=== PATIENT | male | born 1985 | race Caucasian/White ===

== ENCOUNTER 2018-10-14 10:50 | Inpatient (IN) | payer BC ==
[2018-10-14] MEDS ORDERED: NORMAL SALINE 1000 ML 1,000 ML IV ONE (11:23)
[2018-10-14] MEDS ORDERED: ONDANSETRON HCL INJ/PF 4 MG/2 ML SDV IV ONE (11:23)
[2018-10-14] MEDS ORDERED: FENTANYL CITRATE INJ/PF 100 MCG/2 ML AMPUL IV ONE (11:23)
--- NOTE | 2018-10-14 11:28 | ER Document Report ---
ED Medical Screen (RME) - General Chief Complaint: Abdominal Pain Stated Complaint: ABDOMINAL PAIN Time Seen by Provider: 10/14/18 11:23 Primary Care Provider: AJITH CAMPOS MD [Primary Care Provider] - Follow up as needed Mode of Arrival: Ambulatory Information source: Patient Notes: 33-year-old male presents emergency department with complaints of periumbilical abdominal pain, nausea, vomiting, diarrhea since 1 AM. Patient reports having 4-5 episodes of emesis and 2 episodes of loose stool today. Pain is a sharp throbbing sensation located in the periumbilical area. No radiation. No alleviating or exacerbating factors. Patient has taken Tylenol for his pain. Last dose was an hour ago. He denies any fever, chills, testicular pain, penile discharge, dysuria, hematuria, increased urgency, increased frequency. I have greeted and performed a rapid initial assessment of this patient. A comprehensive ED assessment and evaluation of the patient, analysis of test results and completion of the medical decision making process will be conducted by additional ED providers. PHYSICAL EXAMINATION: GENERAL: Well appearing. HEAD: Atraumatic, normocephalic. EYES: Pupils equal round extraocular movements intact, conjunctiva are normal. ENT: Nares patent NECK: Normal range of motion LUNGS: No respiratory distress Musculoskeletal: Normal range of motion NEUROLOGICAL: Normal speech, normal gait. PSYCH: Normal mood, normal affect. SKIN: Warm, Dry, normal turgor, no rashes or lesions noted. TRAVEL OUTSIDE OF THE [place] IN LAST 30 DAYS: No - Related Data Allergies/Adverse Reactions: No Known Allergies Allergy (Verified 10/14/18 10:53) Past Medical History - Social History Frequency of alcohol use: Occasional Drug Abuse: None Renal/ Medical History: Denies: Hx Peritoneal Dialysis Past Surgical History: Reports: Hx Abdominal Surgery - colostomy at , no longer there - Immunizations Hx Diphtheria, Pertussis, Tetanus Vaccination: Yes Physical Exam - Vital signs Vitals: Temp Pulse Resp BP Pulse Ox 97.4 F 60 20 140/81 H 99 10/14/18 10:55 10/14/18 10:55 10/14/18 10:55 10/14/18 10:55 10/14/18 10:55 Course - Vital Signs Vital signs: Temp Pulse Resp BP Pulse Ox 97.4 F 60 20 140/81 H 99 10/14/18 10:55 10/14/18 10:55 10/14/18 10:55 10/14/18 10:55 10/14/18 10:55 Doctor's Discharge - Discharge Referrals: AJITH CAMPOS MD [Primary Care Provider] - Follow up as needed
--- NOTE | 2018-10-14 11:40 | ER Document Report ---
ED General - General Chief Complaint: Abdominal Pain Stated Complaint: ABDOMINAL PAIN Time Seen by Provider: 10/14/18 11:23 Mode of Arrival: Ambulatory Notes: Patient is a 33-year-old male that presents to the emergency department for chief complaint of lower abdominal pain. Patient reports his pain started around 1 AM this morning, described as severe in a 10 out of 10 when it started, across the lower abdomen, not one side or the other. He had associated nausea, and vomited after trying to take some MiraLAX with Gatorade. At this time he denies having any nausea has since resolved. He rates his pain now as a 5 out of 10 after receiving fentanyl in triage. He states his been having normal bowel movements, has had pain like this in the past yet it was not as severe, when he was constipated. He denies noting any fevers, chills, night sweats, dysuria, hematuria, flank pain, chest pain or shortness of breath. No sick contacts that he is aware of. 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 Family History: Reviewed and noncontributory for presenting illness Allergies: Reviewed, see documented allergy list. REVIEW OF SYSTEMS: Other than noted above, the 12 point review of systems was reviewed with the patient and were negative, all pertinent findings are included in the HPI. PHYSICAL EXAMINATION: Vital signs reviewed, nursing noted reviewed. GENERAL: Well-appearing, well-nourished and in no acute distress. HEAD: Atraumatic, normocephalic. EYES: Eyes appear normal, extraocular movements intact, sclera anicteric, conjunctiva are normal. ENT: nares patent, oropharynx clear without exudates. Moist mucous membranes. NECK: Normal range of motion, supple without lymphadenopathy LUNGS: Breath sounds clear to auscultation bilaterally and equal. No wheezes rales or rhonchi. HEART: Regular rate and rhythm without murmurs ABDOMEN: Soft, mild bilateral lower abdominal tenderness to palpation, incidentally there is noted to be a surgical incisional scars well-healed horizontally across the patient's abdomen, normoactive bowel sounds. No rebound, guarding, or rigidity. No masses appreciated. EXTREMITIES: Nontender, good range of motion, no pitting or edema. NEUROLOGICAL: No focal neurological deficits. Moves all extremities spontaneously Motor and sensory grossly intact on exam. PSYCH: Normal mood, normal affect. SKIN: Warm, Dry, normal turgor, no rashes or lesions noted on exposed skin TRAVEL OUTSIDE OF THE [place] IN LAST 30 DAYS: No - Related Data Allergies/Adverse Reactions: No Known Allergies Allergy (Verified 10/14/18 10:53) Past Medical History - General Information source: Patient - Social History Smoking Status: Never Smoker Frequency of alcohol use: Occasional Drug Abuse: None Family History: Reviewed & Not Pertinent Patient has suicidal ideation: No Patient has homicidal ideation: No Renal/ Medical History: Denies: Hx Peritoneal Dialysis Past Surgical History: Reports: Hx Abdominal Surgery - colostomy at , no longer there - Immunizations Hx Diphtheria, Pertussis, Tetanus Vaccination: Yes Physical Exam - Vital signs Vitals: Temp Pulse Resp BP Pulse Ox 97.4 F 60 20 140/81 H 99 10/14/18 10:55 10/14/18 10:55 10/14/18 10:55 10/14/18 10:55 10/14/18 10:55 Course - Re-evaluation Re-evalutation: Patient seen and examined vital signs reviewed. Laboratory data and imaging were ordered as appropriate for the patient's presenting symptoms and complaint, with consideration of any critical or life threatening conditions that may be associated with their obtained history and exam as noted above. Patient was treated with IV Fluids, Zofran and pain medication Results were reviewed when available and demonstrated CT imaging demonstrated mi ld fat stranding at the appendix, concerning for acute appendicitis, this did correlate with elevated white blood cell count of almost 18,000, and consistent with the patient's clinical exam The patient was re-evaluated and was still having some pain, he was given IV Dilaudid in addition to the final he was given earlier, to help control his pain. He was then started on IV Zosyn, and maintain n.p.o. Evaluation was most consistent with acute appendicitis Results were discussed with the patient at this point after careful consideration I feel that that patient should be admitted to the hospital. This was discussed with the patient that it is in the best interest for their care to be admitted for further evaluation and management. Patient agreed with this plan of care. A call was placed to the admitted physician, Dr. English who graciously accepted the patient onto their service, to take the patient to the OR. *Note is created using voice recognition software and may contain spelling, syntax or grammatical errors. Laboratory 10/14/18 10/14/18 10/14/18 11:34 11:34 11:34 WBC 17.6 H RBC 5.83 H Hgb 18.5 H Hct 52.7 H MCV 90 MCH 31.8 MCHC 35.2 RDW 13.3 Plt Count 248 Seg Neutrophils % 89.1 H Lymphocytes % 5.3 L Monocytes % 5.0 Eosinophils % 0.3 Basophils % 0.3 Absolute Neutrophils 15.7 H Absolute Lymphocytes 0.9 Absolute Monocytes 0.9 Absolute Eosinophils 0.1 Absolute Basophils 0.1 Sodium 140.8 Potassium 4.0 Chloride 103 Carbon Dioxide 27 Anion Gap 11 BUN 10 Creatinine 0.92 Est GFR ( Amer) > 60 Est GFR (Non-Af Amer) > 60 Glucose 119 H Calcium 9.6 Total Bilirubin 1.3 Direct Bilirubin 0.3 Neonat Total Bilirubin Not Reportable Neonat Direct Bilirubin Not Reportable Neonat Indirect Bili Not Reportable AST 65 H ALT 69 Alkaline Phosphatase 115 Total Protein 7.8 Albumin 5.0 Lipase 37.0 Urine Color YELLOW Urine Appearance CLEAR Urine pH 7.0 Ur Specific [place] 1.026 Urine Protein 30 H Urine Glucose (UA) NEGATIVE Urine Ketones TRACE H Urine Blood NEGATIVE Urine Nitrite NEGATIVE Urine Bilirubin NEGATIVE Urine Urobilinogen 2.0 H Ur Leukocyte Esterase NEGATIVE Urine WBC (Auto) 1 Urine RBC (Auto) 0 Squamous Epi Cells Auto <1 Urine Mucus (Auto) OCC Urine Ascorbic Acid NEGATIVE Acute Abdomen Series 10/14/18 11:24 IMPRESSION: NO RADIOGRAPHIC EVIDENCE FOR ACUTE ABDOMINAL DISEASE. Abdomen/Pelvis CT 10/14/18 12:11 IMPRESSION: Mild fat stranding in the region of the appendix, consider further evaluation with enteric contrast to assess for appendiceal filling and/or surgical consultation if there is high clinical suspicion for appendicitis. 12 mm lateral segment right lower lobe pleural-based nodularity -scarring with calcifications, chronic appearing and likely related to remote infection. - Vital Signs Vital signs: Temp Pulse Resp BP Pulse Ox 97.4 F 65 14 147/93 H 95 10/14/18 10:55 10/14/18 14:14 10/14/18 14:14 10/14/18 14:14 10/14/18 14:14 - Laboratory Result Diagrams: 10/14/18 11:34 10/14/18 11:34 Laboratory results interpreted by me: 10/14/18 10/14/18 10/14/18 11:34 11:34 11:34 WBC 17.6 H RBC 5.83 H Hgb 18.5 H Hct 52.7 H Seg Neutrophils % 89.1 H Lymphocytes % 5.3 L Absolute Neutrophils 15.7 H Glucose 119 H AST 65 H Urine Protein 30 H Urine Ketones TRACE H Urine Urobilinogen 2.0 H Discharge - Discharge Clinical Impression: Acute appendicitis Qualifiers: Acute appendicitis type: unspecified acute appendicitis type Qualified Code(s): K35.80 - Unspecified acute appendicitis Leukocytosis Qualifiers: Leukocytosis type: unspecified Qualified Code(s): D72.829 - Elevated white blood cell count, unspecified Condition: Stable Disposition: ADMITTED INPATIENT Admitting Provider: Surgicalist - Dr. English Unit Admitted: OR
[2018-10-14 11:49] LABS: APPEARANCE,URINE CLEAR; BILIRUBIN,URINE NEGATIVE (NEGATIVE); COLOR,URINE YELLOW; GLUCOSE, URINE NEGATIVE (NEGATIVE); KETONES,URINE TRACE mg/dL (NEGATIVE); LEUKOCYTE ESTERASE,URINE NEGATIVE (NEGATIVE); NITRITE,URINE NEGATIVE (NEGATIVE); PROTEIN,URINE 30 mg/dL (NEGATIVE); URINE SPECIFIC GRAVITY 1.026
[2018-10-14 11:55] LABS: ABSOLUTE BASOPHILS # (AUTO) 0.1 10^3/uL (0.0-0.2); ABSOLUTE EOSINOPHILS # (AUTO) 0.1 10^3/uL (0.0-0.6); ABSOLUTE LYMPHOCYTES (AUTO) 0.9 10^3/uL (0.5-4.7); ABSOLUTE MONOCYTES (AUTO) 0.9 10^3/uL (0.1-1.4); ABSOLUTE NEUT (AUTO) 15.7 10^3/uL (1.7-8.2); BASOPHILS % (AUTO) 0.3 % (0-2); EOSINOPHILS % (AUTO) 0.3 % (0-6); HEMATOCRIT 52.7 % (37.9-51.0); HEMOGLOBIN 18.5 g/dL (13.5-17.0); LYMPHOCYTES % (AUTO) 5.3 % (13-45); MEAN CORPUSCULAR HEMOGLOBIN 31.8 pg (27.0-33.4); MEAN CORPUSCULAR HGB CONC 35.2 g/dL (32.0-36.0); MEAN CORPUSCULAR VOLUME 90 fl (80-97); PLATELET COUNT 248 10^3/uL (150-450); RED BLOOD COUNT 5.83 10^6/uL (4.35-5.55); RED CELL DISTRIBUTION WIDTH 13.3 % (11.5-14.0); SEGMENTED NEUTROPHILS % (AUTO) 89.1 % (42-78); TOTAL CELLS COUNTED % (AUTO) 100 %; WHITE BLOOD COUNT 17.6 10^3/uL (4.0-10.5)
[2018-10-14] MEDS ORDERED: RINGERS SOLUTION,LACTATED 1,000 ML IV ONE (12:12)
[2018-10-14 12:13] LABS: ALANINE AMINOTRANSFERASE 69 U/L (21-72); ALKALINE PHOSPHATASE 115 U/L (38-126); ANION GAP 11 (5-19); ASPARTATE AMINO TRANSFERASE 65 U/L (17-59); BILIRUBIN,DIRECT 0.3 mg/dL (0.0-0.4); BILIRUBIN,TOTAL 1.3 mg/dL (0.2-1.3); BLOOD UREA NITROGEN 10 mg/dL (7-20); CALCIUM 9.6 mg/dL (8.4-10.2); CARBON DIOXIDE 27 mmol/L (22-30); CHLORIDE 103 mmol/L (98-107); GLUCOSE 119 mg/dL (75-110); SODIUM 140.8 mmol/L (137-145); TOTAL PROTEIN 7.8 g/dL (6.3-8.2)
--- NOTE | 2018-10-14 12:20 | RADIOLOGY REPORT (SQ) ---
EXAM DESCRIPTION: ACUTE ABDOMEN SERIES COMPLETED DATE/TIME: 10/14/2018 12:05 pm REASON FOR STUDY: abdominal pain COMPARISON: None. NUMBER OF VIEWS: Three views. TECHNIQUE: Frontal chest, supine abdomen and upright/decubitus abdomen radiographic images acquired. LIMITATIONS: None. FINDINGS: CHEST: There is a density right cardiophrenic angle consistent with pericardial fat pad. No acute infiltrates or effusions. The heart is normal in size. Pulmonary vasculature is normal. FREE AIR: None. No abnormal gas collections. BOWEL GAS PATTERN: Nonspecific bowel-gas pattern. Scattered gas in large and small bowel. CALCIFICATIONS: No suspicious calcifications. HARDWARE: None in the abdomen. SOFT TISSUES: No gross mass or suggestion of organomegaly. BONES: No acute fracture. No worrisome bone lesions. OTHER: No other significant finding. IMPRESSION: NO RADIOGRAPHIC EVIDENCE FOR ACUTE ABDOMINAL DISEASE. TECHNICAL DOCUMENTATION: JOB ID: [id number] SC-[id number] 2010 [employer]- All Rights Reserved Reading location - IP/workstation name: [email or web address]
[2018-10-14] MEDS ORDERED: HYDROMORPHONE HCL INJ/PF 2 MG/ML AMPULE IV ONE ×2 (12:30→14:01)
--- NOTE | 2018-10-14 13:21 | RADIOLOGY REPORT (SQ) ---
EXAM DESCRIPTION: CT ABD/PELVIS WITH IV ONLY COMPLETED DATE/TIME: 10/14/2018 12:59 pm REASON FOR STUDY: lower abdominal pain, L>R COMPARISON: None. TECHNIQUE: CT scan of the abdomen and pelvis performed using helical scanning technique with dynamic intravenous contrast injection. No oral contrast. Images reviewed with lung, soft tissue, and bone w indows. Reconstructed coronal and sagittal MPR images reviewed. Delayed images for evaluation of the urinary system also acquired. All images stored on PACS. All CT scanners at this facility use dose modulation, iterative reconstruction, and/or weight based d osing when appropriate to reduce radiation dose to as low as reasonably achievable (ALARA). [facility]: Dose Right [facility]: CareDose [facility]: Dose Right [facility]: Teradose 4D [facility]: Shoppilot CONTRAST TYPE AND DOSE: contrast/concentration: Isovue 350.00 mg/ml; Total Contrast Delivered: 100.0 ml; Total Saline Delivered: 72.0 ml RENAL FUNCTION: GFR > 60. RADIATION DOSE: CT Rad equipment meets quality standard of care and radiation dose reduction techniq ues were employed. CTDIvol: 10.9 - 15.3 mGy. DLP: 1570 mGy-cm.. LIMITATIONS: None. FINDINGS: LOWER CHEST: 12 mm lateral segment right lower lobe pleural-based nodularity -scarring wit h calcifications. No pleural effusion. LIVER: Normal size. No enhancing masses. No dilated ducts. SPLEEN: Normal size. No focal lesions. PANCREAS: No masses identified. No significant calcifications. No adjacent inflammation or peripancre atic fluid collections. Pancreatic duct not dilated. GALLBLADDER: No calcified stones. No inflammatory changes to suggest cholecystitis. ADRENAL GLANDS: No significant masses. RIGHT KIDNEY AND URETER: No cysts identified. No solid masses identified. No calcified stones. No hyd ronephrosis or hydroureter. LEFT KIDNEY AND URETER: No cysts identified. No solid masses identified. No calcified stones. No hydr onephrosis or hydroureter. AORTA AND VESSELS: No aneurysm. No dissection. Renal arteries, SMA, celiac without significant stenos is. RETROPERITONEUM: No bulky retroperitoneal adenopathy. BOWEL AND PERITONEAL CAVITY: No obstruction. No free fluid. APPENDIX: Mild fat stranding in the region of the appendix. PELVIS: No mass. No free fluid. Unremarkable bladder. ABDOMINAL WALL: No masses. No hernias. Postsurgical changes in the left lower quadrant. BONES: No acute findings. Mild degenerate disc disease at the L5-S1 level. OTHER: No other significant finding. IMPRESSION: Mild fat stranding in the region of the appendix, consider further evaluation with enter ic contrast to assess for appendiceal filling and/or surgical consultation if there is high clinical suspicion for appendicitis. 12 mm lateral segment right lower lobe pleural-based nodularity -scarring with calcifications, chroni c appearing and likely related to remote infection. TECHNICAL DOCUMENTATION: JOB ID: [id number] [id number] Quality ID # [id number]: Final reports with documentation of one or more dose reduction techniques (e.g., Au tomated exposure control, adjustment of the mA and/or kV according to patient size, use of iterative reconstruction technique) 2010 [employer]- All Rights Reserved Reading location - IP/workstation name: [email or web address]
[2018-10-14] MEDS ORDERED: PIPERACILLIN/TAZOBACTAM 3.375 GM VIAL IV ONE ×2 (13:29→21:30)
--- NOTE | 2018-10-14 14:11 | PDOC H&P ---
History of Present Illness Admission Date/PCP: 10/14/18 13:52 GANESH BOYCE MD Patient complains of: abdominal pains History of Present Illness: BRYAN ROBBINS is a 33 year old male who woke up at 1 am c/o lower abdominal pains with nausea. Went to ED where a CT scan of abd/pelvis was done which showed early acute appendicitis. Was 4 months premature and had colostomy as a . Denies fever/chills. Past Surgical History Past Surgical History: Reports: Other - colostomy as a Social History Smoking Status: Never Smoker Frequency of Alcohol Use: Occasional Family History Family History: Reviewed & Not Pertinent Parental Family History Reviewed: Yes Children Family History Reviewed: No Sibling(s) Family History Reviewed.: No Medication/Allergy Home Medications: Hydrocodone/Ibuprofen [Vicoprofen 200-7.5 mg Tab] 1 each PO Q6 PRN #14 tablet 06/25/13 Allergies/Adverse Reactions: No Known Allergies Allergy (Verified 10/14/18 10:53) Review of Systems Constitutional: PRESENT: as per HPI Ears: PRESENT: other - no visual/hearing changes Cardiovascular: PRESENT: other - no chest pains/cough Gastrointestinal: PRESENT: abdominal pain, nausea Genitourinary: PRESENT: other - no dysuria Physical Exam Vital Signs: Temp Pulse Resp BP Pulse Ox 97.4 F 60 20 140/81 H 99 10/14/18 10:55 10/14/18 10:55 10/14/18 10:55 10/14/18 10:55 10/14/18 10:55 Intake & Output 10/13/18 10/14/18 10/15/18 06:59 06:59 06:59 Intake Total 1999 Balance 1999 Weight 97.7 kg General appearance: PRESENT: mild distress Head exam: PRESENT: atraumatic Eye exam: PRESENT: conjunctiva pink Mouth exam: PRESENT: moist Neck exam: PRESENT: full ROM Respiratory exam: PRESENT: clear to auscultation regina Cardiovascular exam: PRESENT: RRR Pulses: PRESENT: normal radial pulses Vascular exam: PRESENT: normal capillary refill GI/Abdominal exam: PRESENT: soft, tenderness - RLQ, no rebound Rectal exam: PRESENT: deferred Extremities exam: PRESENT: full ROM Musculoskeletal exam: PRESENT: ambulatory Neurological exam: PRESENT: alert, oriented to person, oriented to place, oriented to time, oriented to situation Psychiatric exam: PRESENT: appropriate affect Skin exam: PRESENT: normal color, warm Results Laboratory Results: 10/14/18 11:34 10/14/18 11:34 10/14/18 10/14/18 10/14/18 11:34 11:34 11:34 WBC 17.6 H RBC 5.83 H Hgb 18.5 H Hct 52.7 H MCV 90 MCH 31.8 MCHC 35.2 RDW 13.3 Plt Count 248 Seg Neutrophils % 89.1 H Lymphocytes % 5.3 L Monocytes % 5.0 Eosinophils % 0.3 Basophils % 0.3 Absolute Neutrophils 15.7 H Absolute Lymphocytes 0.9 Absolute Monocytes 0.9 Absolute Eosinophils 0.1 Absolute Basophils 0.1 Sodium 140.8 Potassium 4.0 Chloride 103 Carbon Dioxide 27 Anion Gap 11 BUN 10 Creatinine 0.92 Est GFR ( Amer) > 60 Est GFR (Non-Af Amer) > 60 Glucose 119 H Calcium 9.6 Total Bilirubin 1.3 AST 65 H ALT 69 Alkaline Phosphatase 115 Total Protein 7.8 Albumin 5.0 Lipase 37.0 Urine Color YELLOW Urine Appearance CLEAR Urine pH 7.0 Ur Specific [place] 1.026 Urine Protein 30 H Urine Glucose (UA) NEGATIVE Urine Ketones TRACE H Urine Blood NEGATIVE Urine Nitrite NEGATIVE Ur Leukocyte Esterase NEGATIVE Urine WBC (Auto) 1 Urine RBC (Auto) 0 Impressions: Acute Abdomen Series 10/14/18 11:24 IMPRESSION: NO RADIOGRAPHIC EVIDENCE FOR ACUTE ABDOMINAL DISEASE. Abdomen/Pelvis CT 10/14/18 12:11 IMPRESSION: Mild fat stranding in the region of the appendix, consider further evaluation with enteric contrast to assess for appendiceal filling and/or surgical consultation if there is high clinical suspicion for appendicitis. 12 mm lateral segment right lower lobe pleural-based nodularity -scarring with calcifications, chronic appearing and likely related to remote infection. Assessment & Plan - Diagnosis (1) Acute appendicitis Is this a current diagnosis for this admission?: Yes - Time Time Spent: 30 to 50 Minutes - Plan Summary Plan Summary: Start IV antibiotics Hydrate For laparoscopic appendectomy possible open Procedure explained to the patient and and risks mentioned. They understand and give their consent
[2018-10-14] MEDS ORDERED: BUPIVACAINE HCL 0.25 % INJ/PF (2.5 MG/1 ML) 30 ML VIAL ONE (14:24)
[2018-10-14] MEDS ORDERED: FENTANYL CITRATE INJ/PF 250 MCG/5 ML AMPULE ONE (14:38)
[2018-10-14] MEDS ORDERED: HYDROMORPHONE HCL INJ/PF 2 MG/ML AMPULE ONE (14:38)
[2018-10-14] MEDS ORDERED: MIDAZOLAM 2 MG/2 ML INJ ONE (14:39)
[2018-10-14] MEDS ORDERED: ACETAMINOPHEN 1,000 MG/100 ML RTUPB IV ONE (14:39)
[2018-10-14] MEDS ORDERED: PROPOFOL INJ 200 MG/20 ML VIAL IV ONE (14:39)
[2018-10-14] MEDS ORDERED: ROCURONIUM BROMIDE INJ 50 MG/5 ML VIAL IV ONE (15:06)
[2018-10-14] MEDS ORDERED: GLYCOPYRROLATE 1 MG/5 ML SYRINGE ONE (15:06)
[2018-10-14] MEDS ORDERED: DEXAMETHASONE SOD PHOSPHATE INJ 4 MG/1 ML VIAL ONE (15:06)
[2018-10-14] MEDS ORDERED: SUCCINYLCHOLINE CHLORIDE INJ 200 MG/10 ML VIAL ONE (15:06)
[2018-10-14] MEDS ORDERED: ONDANSETRON HCL INJ/PF 4 MG/2 ML SDV ONE (15:06)
[2018-10-14] MEDS ORDERED: NEOSTIGMINE METHYLSULFATE 10 MG/10 ML VIAL ONE (15:06)
[2018-10-14] MEDS ORDERED: MEPERIDINE HCL/PF INJ 25 MG/1 ML DISP.SYRIN IV PRN (15:44)
[2018-10-14] MEDS ORDERED: PROMETHAZINE HCL INJ 25 MG/1 ML VIAL IV PRN (15:44)
[2018-10-14] MEDS ORDERED: DIPHENHYDRAMINE HCL 50 MG/ML VIAL IV PRN (15:44)
[2018-10-14] MEDS ORDERED: FENTANYL CITRATE INJ/PF 100 MCG/2 ML AMPUL IV PRN ×3 (15:44)
[2018-10-14] MEDS ORDERED: MORPHINE SULFATE 10 MG/ML INJ IV PRN (15:44)
[2018-10-14] MEDS ORDERED: KETOROLAC TROMETHAMINE INJ/PF 30 MG/1 ML SDV ONE (18:01)
[2018-10-14] MEDS ORDERED: PIPERACILLIN/TAZOBACTAM 3.375 GM VIAL IV PRN (18:39)
[2018-10-14] MEDS ORDERED: ONDANSETRON HCL INJ/PF 4 MG/2 ML SDV IV PRN (18:39)
[2018-10-14] MEDS: NORMAL SALINE 1000 ML 1,000 ML IV PRN (18:48)
[2018-10-14] MEDS: PIPERACILLIN SODIUM/TAZOBACTAM 3.375 GM in NORMAL SALINE 100 ML IV SCH (22:40)
[2018-10-14] MEDS: KETOROLAC TROMETHAMINE INJ/PF 30 MG/1 ML SDV IV SCH (22:41)
[2018-10-14] MEDS ORDERED: TAMSULOSIN HCL 0.4 MG CAP.SR.24H PO ONE (23:59)
[2018-10-15] MEDS: PIPERACILLIN SODIUM/TAZOBACTAM 3.375 GM in NORMAL SALINE 100 ML IV SCH ×4 (03:47→21:10)
[2018-10-15] MEDS: NORMAL SALINE 1000 ML 1,000 ML IV PRN (03:48)
[2018-10-15] MEDS: KETOROLAC TROMETHAMINE INJ/PF 30 MG/1 ML SDV IV SCH ×4 (03:48→21:09)
--- NOTE | 2018-10-15 04:17 | OPERATIVE REPORT E ---
Operative Report NAME: RBYAN ROBBINS : 1985 AGE: 33Y DATE OF SURGERY: 10/14/2018 ROOM: 207 PREOPERATIVE DIAGNOSIS: ACUTE APPENDICITIS. POSTOPERATIVE DIAGNOSIS: ACUTE APPENDICITIS. OPERATION: Attempted laparoscopic appendectomy, open appendectomy. SURGEON: REX MANN M.D. ANESTHESIA: General. INDICATION: This is a 33-year-old male who complained of pain at about 1 a.m. this morning associated with nausea. He had a CAT scan of the abdomen which showed acute appendicitis. He had a previous colon resection as a . DESCRIPTION OF PROCEDURE: After adequate general anesthesia, the patient was placed in supine position and the abdomen prepped and draped in the usual sterile fashion. A midline incision just below the umbilicus was then made and the fascia identified and sutured on each side of the fascia with 0 Vicryl. With finger dissection, there appears to be a lot of adhesions. The [place] trocar was inserted, but unable to visualize anything other than the adhesions. Because of this, the laparoscopic procedure was then aborted. A McBurney incision was then made and carried to the fascia. The external oblique fascia was then divided towards the area of the rectus muscle. The internal oblique muscle was then divided along the incision with the use of cautery. The peritoneum was then grasped with hemostats and divided with a knife. This then lifted up and then divided. There was a thick adhesion on the peritoneum all over the place. With blunt dissection, the appendix was then palpated caudally. The incision needed to be enlarged proximally by further dividing the internal oblique muscle with cautery. The adhesions were all over the place and finally the appendix was able to be palpated and the tip grasped with a [place]. The appendix was then dissected close to the cecum. However, while doing so the appendix ripped and some purulent material extruded out. Cultures were obtained. The area was eventually irrigated with saline solution. Next, the mesoappendix was subsequently isolated with the right-angle clamp and subsequently clamped and divided. The proximal side was then ligated with 0 Vicryl. The base of the appendix was further bluntly cleaned. The appendix itself was markedly swollen and darkly discolored. The base of the appendix was subsequently grasped with the right-angle clamp and crushed. The base of the appendix was then ligated with an Endoloop twice using 0 PDS. A right-angle clamp placed distal to the PDS ligature and the appendix divided just below the right-angle clamp. The appendiceal stump was then coagulated. The appendix was then placed in a specimen bottle for pathology evaluation. The 2 looped PDS ties were then cut and the *------* dropped into the abdominal cavity. The area was then further irrigated with copious solution of at least a liter of saline. The peritoneum was sutured back with 2-0 Vicryl in a running fashion. The internal oblique muscle closed with running suture using 0 Vicryl. The external oblique aponeurosis closed with running suture using 0 Vicryl. The wound was left open at the subcutaneous and skin layer. Several skin and subcutaneous simple sutures using 2-0 nylon were placed about 1 cm apart and left untied. The wound was then packed with Iodoform-soaked Kerlix. The initial fascial defect at the infraumbilical area was then closed with 2 [id number] sutures using 0 Vicryl and the 2 stay sutures tied together. This was then irrigated. The skin was then closed with running subcuticular 4-0 Vicryl undyed. ABD pads were placed on top of the packing and taped to the skin. A 15-Ind[place]ian Natanael drain was placed at the area of the appendix, brought out through the lower quadrant area, and tied to the skin with 2-0 silk. This was done prior to closure of the fascia. The patient tolerated the procedure well and brought to the recovery room in satisfactory condition. Needle, instrument, and sponge counts were all correct. Estimated blood loss about 30 mL. DICTATING PHYSICIAN: REX MANN M.D. [id number] PHY#: [id number] ID: [id number] JOB#: [id number] ACCT: [id number] cc:REX MANN M.D. >
[2018-10-15 06:36] LABS: ABSOLUTE LYMPHOCYTES (AUTO) 1.2 10^3/uL (0.5-4.7); ABSOLUTE NEUT (AUTO) 13.3 10^3/uL (1.7-8.2); BASOPHILS % (AUTO) 0.2 % (0-2); EOSINOPHILS % (AUTO) 0.1 % (0-6); HEMATOCRIT 43.8 % (37.9-51.0); LYMPHOCYTES % (AUTO) 7.9 % (13-45); MEAN CORPUSCULAR HEMOGLOBIN 32.3 pg (27.0-33.4); MEAN CORPUSCULAR VOLUME 92 fl (80-97); MONOCYTES % (AUTO) 6.5 % (3-13); PLATELET COUNT 196 10^3/uL (150-450); RED BLOOD COUNT 4.75 10^6/uL (4.35-5.55); RED CELL DISTRIBUTION WIDTH 13.4 % (11.5-14.0); SEGMENTED NEUTROPHILS % (AUTO) 85.3 % (42-78); TOTAL CELLS COUNTED % (AUTO) 100 %; WHITE BLOOD COUNT 15.6 10^3/uL (4.0-10.5)
[2018-10-15 06:39] LABS: HEMOGLOBIN 15.3 g/dL (13.5-17.0)
[2018-10-15 06:51] LABS: ANION GAP 10 (5-19); BLOOD UREA NITROGEN 8 mg/dL (7-20); CALCIUM 8.7 mg/dL (8.4-10.2); CARBON DIOXIDE 26 mmol/L (22-30); CHLORIDE 106 mmol/L (98-107); GLUCOSE 109 mg/dL (75-110); SODIUM 142.3 mmol/L (137-145)
--- NOTE | 2018-10-15 07:53 | PDOC PROGRESS REPORT ---
Subjective Progress Note for:: 10/15/18 Subjective:: less pains. Tolerating clears Reason For Visit: ACUTE APPENDICITIS Physical Exam Vital Signs: Temp Pulse Resp BP Pulse Ox 97.8 F 43 L 16 124/67 96 10/15/18 03:31 10/15/18 03:31 10/15/18 03:31 10/15/18 03:31 10/15/18 03:31 Intake & Output 10/14/18 10/15/18 10/16/18 06:59 06:59 06:59 Intake Total 4950 Output Total 1170 Balance 3780 Weight 98.2 kg Exam: Drainage from drain <30 ccs. Pulled out. Incision looks very clean and reddish Packing removed and changed to saline wet to dry dressings Q 12 hrs Results Laboratory Results: 10/15/18 06:01 10/15/18 06:01 10/14/18 10/14/18 10/14/18 11:34 11:34 11:34 WBC 17.6 H RBC 5.83 H Hgb 18.5 H Hct 52.7 H MCV 90 MCH 31.8 MCHC 35.2 RDW 13.3 Plt Count 248 Seg Neutrophils % 89.1 H Lymphocytes % 5.3 L Monocytes % 5.0 Eosinophils % 0.3 Basophils % 0.3 Absolute Neutrophils 15.7 H Absolute Lymphocytes 0.9 Absolute Monocytes 0.9 Absolute Eosinophils 0.1 Absolute Basophils 0.1 Sodium 140.8 Potassium 4.0 Chloride 103 Carbon Dioxide 27 Anion Gap 11 BUN 10 Creatinine 0.92 Est GFR ( Amer) > 60 Est GFR (Non-Af Amer) > 60 Glucose 119 H Calcium 9.6 Total Bilirubin 1.3 AST 65 H ALT 69 Alkaline Phosphatase 115 Total Protein 7.8 Albumin 5.0 Lipase 37.0 Urine Color YELLOW Urine Appearance CLEAR Urine pH 7.0 Ur Specific [place] 1.026 Urine Protein 30 H Urine Glucose (UA) NEGATIVE Urine Ketones TRACE H Urine Blood NEGATIVE Urine Nitrite NEGATIVE Ur Leukocyte Esterase NEGATIVE Urine WBC (Auto) 1 Urine RBC (Auto) 0 10/15/18 10/15/18 06:01 06:01 WBC 15.6 H RBC 4.75 Hgb 15.3 D Hct 43.8 MCV 92 MCH 32.3 MCHC 35.0 RDW 13.4 Plt Count 196 Seg Neutrophils % 85.3 H Lymphocytes % 7.9 L Monocytes % 6.5 Eosinophils % 0.1 Basophils % 0.2 Absolute Neutrophils 13.3 H Absolute Lymphocytes 1.2 Absolute Monocytes 1.0 Absolute Eosinophils 0.0 Absolute Basophils 0.0 Sodium 142.3 Potassium 4.0 Chloride 106 Carbon Dioxide 26 Anion Gap 10 BUN 8 Creatinine 0.97 Est GFR ( Amer) > 60 Est GFR (Non-Af Amer) > 60 Glucose 109 Calcium 8.7 Total Bilirubin AST ALT Alkaline Phosphatase Total Protein Albumin Lipase Urine Color Urine Appearance Urine pH Ur Specific [place] Urine Protein Urine Glucose (UA) Urine Ketones Urine Blood Urine Nitrite Ur Leukocyte Esterase Urine WBC (Auto) Urine RBC (Auto) Impressions: Acute Abdomen Series 10/14/18 11:24 IMPRESSION: NO RADIOGRAPHIC EVIDENCE FOR ACUTE ABDOMINAL DISEASE. Abdomen/Pelvis CT 10/14/18 12:11 IMPRESSION: Mild fat stranding in the region of the appendix, consider further evaluation with enteric contrast to assess for appendiceal filling and/or surgical consultation if there is high clinical suspicion for appendicitis. 12 mm lateral segment right lower lobe pleural-based nodularity -scarring with calcifications, chronic appearing and likely related to remote infection. Assessment & Plan - Diagnosis (1) Acute appendicitis Qualifiers: Acute appendicitis type: unspecified acute appendicitis type Qualified Code(s): K35.80 - Unspecified acute appendicitis Is this a current diagnosis for this admission?: Yes - Time Time Spent with patient: 15-24 minutes - Inpatient Certification Medical Necessity: Need for IV Antibiotics - Plan Summary Plan Summary: Increase diet to regular as tolerated Continue IV antibiotics Recheck WBC in am Possible delayed primary closure of incision at bedside tomorrow.
[2018-10-15] MEDS: HYDROMORPHONE HCL INJ/PF 2 MG/ML AMPULE IV PRN ×2 (09:26→17:44)
[2018-10-15] MEDS ORDERED: BUPIVACAINE HCL 0.25 % INJ/PF (2.5 MG/1 ML) 30 ML VIAL ONE (10:37)
[2018-10-15] MEDS ORDERED: LIDOCAINE 0.5% INJ-PF (5 MG/ML) 50 ML SDV ONE (10:37)
--- NOTE | 2018-10-15 10:38 | PDOC PROGRESS REPORT ---
Subjective Progress Note for:: 10/15/18 Subjective:: The patient was seen at about 0 904 bleeding from his right lower quadrant abdominal wound. The operative report was reviewed. The patient was evaluated and found to have bleeding. Reason For Visit: ACUTE APPENDICITIS On expected postoperative course. Physical Exam Vital Signs: Temp Pulse Resp BP Pulse Ox 98.3 F 77 18 105/84 94 10/15/18 08:38 10/15/18 08:38 10/15/18 08:38 10/15/18 08:38 10/15/18 08:38 Intake & Output 10/14/18 10/15/18 10/16/18 06:59 06:59 06:59 Intake Total 4950 Output Total 1170 Balance 3780 Weight 98.2 kg Additional comments: Constitutional: Well-developed well-nourished gentleman. No apparent acute distress. Eyes: Mucous membranes pink and moist, pupils equal and reactive to light. Conjunctiva normal. Cornea normal. Respiratory: Normal respiratory effort. Abdomen: Soft, nontender, mildly obese. Open right lower quadrant incision with clots and some active bleeding. Surgical scars absent. Psychiatric: Judgment, memory, insight seem normal. Mood is pleasant and appropriate. Slightly anxious. Results Laboratory Results: 10/15/18 06:01 10/15/18 06:01 10/14/18 10/14/18 10/14/18 11:34 11:34 11:34 WBC 17.6 H RBC 5.83 H Hgb 18.5 H Hct 52.7 H MCV 90 MCH 31.8 MCHC 35.2 RDW 13.3 Plt Count 248 Seg Neutrophils % 89.1 H Lymphocytes % 5.3 L Monocytes % 5.0 Eosinophils % 0.3 Basophils % 0.3 Absolute Neutrophils 15.7 H Absolute Lymphocytes 0.9 Absolute Monocytes 0.9 Absolute Eosinophils 0.1 Absolute Basophils 0.1 Sodium 140.8 Potassium 4.0 Chloride 103 Carbon Dioxide 27 Anion Gap 11 BUN 10 Creatinine 0.92 Est GFR ( Amer) > 60 Est GFR (Non-Af Amer) > 60 Glucose 119 H Calcium 9.6 Total Bilirubin 1.3 AST 65 H ALT 69 Alkaline Phosphatase 115 Total Protein 7.8 Albumin 5.0 Lipase 37.0 Urine Color YELLOW Urine Appearance CLEAR Urine pH 7.0 Ur Specific [place] 1.026 Urine Protein 30 H Urine Glucose (UA) NEGATIVE Urine Ketones TRACE H Urine Blood NEGATIVE Urine Nitrite NEGATIVE Ur Leukocyte Esterase NEGATIVE Urine WBC (Auto) 1 Urine RBC (Auto) 0 10/15/18 10/15/18 06:01 06:01 WBC 15.6 H RBC 4.75 Hgb 15.3 D Hct 43.8 MCV 92 MCH 32.3 MCHC 35.0 RDW 13.4 Plt Count 196 Seg Neutrophils % 85.3 H Lymphocytes % 7.9 L Monocytes % 6.5 Eosinophils % 0.1 Basophils % 0.2 Absolute Neutrophils 13.3 H Absolute Lymphocytes 1.2 Absolute Monocytes 1.0 Absolute Eosinophils 0.0 Absolute Basophils 0.0 Sodium 142.3 Potassium 4.0 Chloride 106 Carbon Dioxide 26 Anion Gap 10 BUN 8 Creatinine 0.97 Est GFR ( Amer) > 60 Est GFR (Non-Af Amer) > 60 Glucose 109 Calcium 8.7 Total Bilirubin AST ALT Alkaline Phosphatase Total Protein Albumin Lipase Urine Color Urine Appearance Urine pH Ur Specific [place] Urine Protein Urine Glucose (UA) Urine Ketones Urine Blood Urine Nitrite Ur Leukocyte Esterase Urine WBC (Auto) Urine RBC (Auto) Impressions: Acute Abdomen Series 10/14/18 11:24 IMPRESSION: NO RADIOGRAPHIC EVIDENCE FOR ACUTE ABDOMINAL DISEASE. Abdomen/Pelvis CT 10/14/18 12:11 IMPRESSION: Mild fat stranding in the region of the appendix, consider further evaluation with enteric contrast to assess for appendiceal filling and/or surgical consultation if there is high clinical suspicion for appendicitis. 12 mm lateral segment right lower lobe pleural-based nodularity -scarring with calcifications, chronic appearing and likely related to remote infection. Assessment & Plan - Diagnosis (1) Post-op bleeding Qualifiers: Surgical complication system/body Area: subcutaneous tissue Is this a current diagnosis for this admission?: Yes (2) Acute appendicitis Qualifiers: Acute appendicitis type: unspecified acute appendicitis type Qualified Code(s): K35.80 - Unspecified acute appendicitis Is this a current diagnosis for this admission?: Yes (3) Leukocytosis Qualifiers: Leukocytosis type: unspecified Qualified Code(s): D72.829 - Elevated white blood cell count, unspecified Is this a current diagnosis for this admission?: Yes - Plan Summary Plan Summary: The patient appears to have bleeding in the subcutaneous tissues of his abdominal wound. This is clouded with a fair amount of clot. Overall he is hemodynamically stable. I reviewed the operative report and discuss it with Dr. English. 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 This mid abdominal entry challenging. He also had that acute appendicitis with surrounding purulence. I anticipate that control of the bleeding in the subcutaneous tissues is feasible under local anesthesia with sedation. General anesthesia is reserved s hould the problem prove more challenging. Dr. Anderson is promotional model but is currently occupied in a very large surgery. He will join the case if possible, if needed. I have discussed the case with the patient was a full understanding including the risks benefits and expected outcome. He wishes to proceed.
[2018-10-15] MEDS ORDERED: MIDAZOLAM 2 MG/2 ML INJ ONE (10:40)
[2018-10-15] MEDS ORDERED: DEXMEDETOMIDINE INJ 80 MCG/20 ML VIAL IV ONE (10:40)
[2018-10-15] MEDS ORDERED: FENTANYL CITRATE INJ/PF 100 MCG/2 ML AMPUL ONE ×2 (10:40→10:46)
[2018-10-15] MEDS ORDERED: PROPOFOL INJ 200 MG/20 ML VIAL IV ONE (10:41)
[2018-10-15] MEDS ORDERED: ACETAMINOPHEN 1,000 MG/100 ML RTUPB IV ONE (10:41)
[2018-10-15] MEDS ORDERED: EPHEDRINE SULFATE INJ 50 MG/1 ML AMPULE ONE (10:42)
[2018-10-15] MEDS ORDERED: SUGAMMADEX SODIUM 200 MG/2 ML SDV IV ONE (11:35)
--- NOTE | 2018-10-15 11:44 | Operative Report ---
Operative Report DATE OF SURGERY: 10/15/18 PREOPERATIVE DIAGNOSIS: 1. Postoperative bleed. 2. Status post difficult open appendectomy. 3. Presentation with purulent appendicitis. POSTOPERATIVE DIAGNOSIS: 1. Postoperative bleed. 2. Status post difficult open appendectomy. 3. Presentation with purulent appendicitis. OPERATION: Surgical wound exploration and control of bleeding. SURGEON: MARQUIS HOOPER [employer] SALESPERSON: None. ANESTHESIA: GA TISSUE REMOVED OR ALTERED: Not applicable. COMPLICATIONS: None. ESTIMATED BLOOD LOSS: 10 mL. INTRAOPERATIVE FINDINGS: Of a large open wound right lower abdomen about 12 cm x 5 cm across by 5 cm deep. A number of small bleeding areas in 1 small vessel about 0.2 mm inferior medially in the subcutaneous tissues. These were controlled with cautery. Wound at the end of the procedure was dry with no bleeding sites noted whatsoever. This is with a normotensive patient. PROCEDURE: Having obtained informed consent the patient was taken to the operating room laid supine, anesthetized and intubated. The abdomen was prepared with Betadine solution and draped in a sterile linen. After the timeout "procedure commenced. The wound was irrigated with peroxide and months dry. Bleeding points were identified, cauterized. The wound was held open with Gelpi retractors. Several rounds of exploration moving from superficial to deep medial to lateral were done. The wound was irrigated serially with peroxide and with saline. Subcutaneous tissues were intentionally provoked with gauze. This was repeated several times to ensure no missing vessels. At the end of several minutes of exploration of the wound was quite dry with no bleeding whatsoever. The patient was normotensive. At this point the wound was covered with Surgicel and then with a Kerlix gauze. The previously placed sutures were left in place. ABD dressing and tape applied and the procedure concluded.
[2018-10-15] MEDS ORDERED: MEPERIDINE HCL/PF INJ 25 MG/1 ML DISP.SYRIN IV PRN (12:03)
[2018-10-15] MEDS ORDERED: FENTANYL CITRATE INJ/PF 100 MCG/2 ML AMPUL IV PRN ×3 (12:03)
[2018-10-15] MEDS ORDERED: DIPHENHYDRAMINE HCL 50 MG/ML VIAL IV PRN (12:03)
[2018-10-15] MEDS ORDERED: PROMETHAZINE HCL INJ 25 MG/1 ML VIAL IV PRN ×2 (12:03)
[2018-10-15] MEDS ORDERED: LIDOCAINE 2% INJ-PF (20 MG/ML) 2 ML AMPUL ONE (15:02)
[2018-10-15] MEDS ORDERED: SUCCINYLCHOLINE CHLORIDE INJ 200 MG/10 ML VIAL ONE (15:02)
[2018-10-15] MEDS ORDERED: GLYCOPYRROLATE 1 MG/5 ML SYRINGE ONE (15:02)
[2018-10-15] MEDS ORDERED: DEXAMETHASONE SOD PHOSPHATE INJ 4 MG/1 ML VIAL ONE (15:02)
[2018-10-15] MEDS ORDERED: ROCURONIUM BROMIDE INJ 50 MG/5 ML VIAL IV ONE (15:02)
[2018-10-15] MEDS ORDERED: ONDANSETRON HCL INJ/PF 4 MG/2 ML SDV ONE (15:02)
[2018-10-15] MEDS: DEXTROSE 5%-1/2 NORMAL SALINE 1,000 ML IV PRN (15:06)
[2018-10-16] MEDS: PIPERACILLIN SODIUM/TAZOBACTAM 3.375 GM in NORMAL SALINE 100 ML IV SCH ×4 (03:08→20:45)
[2018-10-16] MEDS: DEXTROSE 5%-1/2 NORMAL SALINE 1,000 ML IV PRN (03:09)
[2018-10-16] MEDS: KETOROLAC TROMETHAMINE INJ/PF 30 MG/1 ML SDV IV SCH ×4 (03:09→20:45)
--- NOTE | 2018-10-16 19:34 | PDOC PROGRESS REPORT ---
Subjective Progress Note for:: 10/16/18 Reason For Visit: ACUTE APPENDICITIS Physical Exam Vital Signs: Temp Pulse Resp BP Pulse Ox 98.6 F 87 16 115/64 99 10/16/18 16:00 10/16/18 16:00 10/16/18 16:00 10/16/18 16:00 10/16/18 16:00 Intake & Output 10/15/18 10/16/18 10/17/18 06:59 06:59 06:59 Intake Total 4950 4504 1200 Output Total 1180 230 Balance 3770 4274 1200 Weight 98.2 kg 99.2 kg Results Laboratory Results: 10/15/18 06:01 10/15/18 06:01 10/14/18 16:21 Appendix Gram Stain - Final Impressions: Acute Abdomen Series 10/14/18 11:24 IMPRESSION: NO RADIOGRAPHIC EVIDENCE FOR ACUTE ABDOMINAL DISEASE. Abdomen/Pelvis CT 10/14/18 12:11 IMPRESSION: Mild fat stranding in the region of the appendix, consider further evaluation with enteric contrast to assess for appendiceal filling and/or surgical consultation if there is high clinical suspicion for appendicitis. 12 mm lateral segment right lower lobe pleural-based nodularity -scarring with calcifications, chronic appearing and likely related to remote infection. Assessment & Plan - Diagnosis (1) Acute appendicitis Qualifiers: Acute appendicitis type: unspecified acute appendicitis type Qualified Code(s): K35.80 - Unspecified acute appendicitis Is this a current diagnosis for this admission?: Yes - Plan Summary Plan Summary: This is a 33-year-old male status post open appendectomy for acute appendicitis. The patient had bleeding from his incision yesterday, requiring cauterization and packing with Surgicel. The Surgicel is still in place today. The wound appears clean. There is no active bleeding at this time. I have changed the dressing at the bedside today. The patient is doing very well. Possible discharge tomorrow. I may perform a partial delayed primary closure of the wound prior to discharge. This was discussed with the patient at length.
[2018-10-17] MEDS: PIPERACILLIN SODIUM/TAZOBACTAM 3.375 GM in NORMAL SALINE 100 ML IV SCH ×4 (03:58→20:43)
[2018-10-17] MEDS: KETOROLAC TROMETHAMINE INJ/PF 30 MG/1 ML SDV IV SCH ×4 (03:58→20:42)
[2018-10-17 07:14] LABS: ABSOLUTE BASOPHILS # (AUTO) 0.1 10^3/uL (0.0-0.2); ABSOLUTE EOSINOPHILS # (AUTO) 0.3 10^3/uL (0.0-0.6); ABSOLUTE LYMPHOCYTES (AUTO) 1.6 10^3/uL (0.5-4.7); ABSOLUTE MONOCYTES (AUTO) 0.8 10^3/uL (0.1-1.4); EOSINOPHILS % (AUTO) 2.3 % (0-6); HEMATOCRIT 40.6 % (37.9-51.0); HEMOGLOBIN 14.2 g/dL (13.5-17.0); LYMPHOCYTES % (AUTO) 14.8 % (13-45); MEAN CORPUSCULAR HEMOGLOBIN 32.4 pg (27.0-33.4); MEAN CORPUSCULAR HGB CONC 35.1 g/dL (32.0-36.0); MEAN CORPUSCULAR VOLUME 92 fl (80-97); MONOCYTES % (AUTO) 7.8 % (3-13); PLATELET COUNT 186 10^3/uL (150-450); RED BLOOD COUNT 4.39 10^6/uL (4.35-5.55); RED CELL DISTRIBUTION WIDTH 13.4 % (11.5-14.0); SEGMENTED NEUTROPHILS % (AUTO) 74.1 % (42-78); TOTAL CELLS COUNTED % (AUTO) 100 %; WHITE BLOOD COUNT 10.8 10^3/uL (4.0-10.5)
[2018-10-17 07:33] LABS: ANION GAP 10 (5-19); BLOOD UREA NITROGEN 8 mg/dL (7-20); CALCIUM 8.6 mg/dL (8.4-10.2); CARBON DIOXIDE 25 mmol/L (22-30); CHLORIDE 108 mmol/L (98-107); GLUCOSE 87 mg/dL (75-110); POTASSIUM 3.4 mmol/L (3.6-5.0); SODIUM 142.9 mmol/L (137-145)
--- NOTE | 2018-10-17 09:13 | PDOC PROGRESS REPORT ---
Subjective Progress Note for:: 10/17/18 Reason For Visit: ACUTE APPENDICITIS Physical Exam Vital Signs: Temp Pulse Resp BP Pulse Ox 98.0 F 62 18 130/74 H 96 10/17/18 07:36 10/17/18 07:36 10/17/18 07:36 10/17/18 07:36 10/17/18 07:36 Intake & Output 10/16/18 10/17/18 10/18/18 06:59 06:59 06:59 Intake Total 4504 1400 Output Total 230 Balance 4274 1400 Weight 99.2 kg 99.4 kg General appearance: PRESENT: no acute distress Respiratory exam: PRESENT: clear to auscultation regina Cardiovascular exam: PRESENT: RRR GI/Abdominal exam: PRESENT: other - wound packed with surgiceil, removed sutures tied and wound appproximated. Extremities exam: PRESENT: full ROM Musculoskeletal exam: PRESENT: full ROM Results Laboratory Results: 10/17/18 06:15 10/17/18 06:15 10/17/18 10/17/18 06:15 06:15 WBC 10.8 H RBC 4.39 Hgb 14.2 Hct 40.6 MCV 92 MCH 32.4 MCHC 35.1 RDW 13.4 Plt Count 186 Seg Neutrophils % 74.1 Lymphocytes % 14.8 Monocytes % 7.8 Eosinophils % 2.3 Basophils % 1.0 Absolute Neutrophils 8.0 Absolute Lymphocytes 1.6 Absolute Monocytes 0.8 Absolute Eosinophils 0.3 Absolute Basophils 0.1 Sodium 142.9 Potassium 3.4 L Chloride 108 H Carbon Dioxide 25 Anion Gap 10 BUN 8 Creatinine 0.93 Est GFR ( Amer) > 60 Est GFR (Non-Af Amer) > 60 Glucose 87 Calcium 8.6 10/14/18 16:21 Appendix Gram Stain - Final 10/14/18 16:21 Appendix Wound Culture - Final Escherichia Coli Esbl Bacteroides Fragilis Group Peptostreptococcus Species Clostridium Sp.not Perfringens Impressions: Acute Abdomen Series 10/14/18 11:24 IMPRESSION: NO RADIOGRAPHIC EVIDENCE FOR ACUTE ABDOMINAL DISEASE. Abdomen/Pelvis CT 10/14/18 12:11 IMPRESSION: Mild fat stranding in the region of the appendix, consider further evaluation with enteric contrast to assess for appendiceal filling and/or surgical consultation if there is high clinical suspicion for appendicitis. 12 mm lateral segment right lower lobe pleural-based nodularity -scarring with calcifications, chronic appearing and likely related to remote infection. Assessment & Plan - Diagnosis (1) Acute appendicitis Qualifiers: Acute appendicitis type: unspecified acute appendicitis type Qualified Code(s): K35.80 - Unspecified acute appendicitis Is this a current diagnosis for this admission?: Yes - Plan Summary Plan Summary: wound approximated pt felt uncomfortable going home todaay wound cult report discussed iw microbiology pt currently on pipracillin with e-coli sensitive to will cont iv abx wound packing possibly dc home in am
[2018-10-17] MEDS ORDERED: HYDROCODONE/ACETAMINOPHEN 5-325 MG TABLET ONE (09:25)
[2018-10-17] MEDS ORDERED: HYDROCODONE/ACETAMINOPHEN 5-325 MG TABLET PO PRN (09:31)
[2018-10-17] MEDS: HYDROCODONE/ACETAMINOPHEN 5-325 MG TABLET PO PRN (19:30)
[2018-10-18] MEDS: KETOROLAC TROMETHAMINE INJ/PF 30 MG/1 ML SDV IV SCH ×4 (03:35→21:28)
[2018-10-18] MEDS: PIPERACILLIN SODIUM/TAZOBACTAM 3.375 GM in NORMAL SALINE 100 ML IV SCH ×4 (03:35→21:29)
[2018-10-18] MEDS: HYDROCODONE/ACETAMINOPHEN 5-325 MG TABLET PO PRN (08:26)
[2018-10-18] MEDS: HYDROMORPHONE HCL INJ/PF 2 MG/ML AMPULE IV PRN (14:17)
--- NOTE | 2018-10-18 14:32 | PDOC PROGRESS REPORT ---
Subjective Progress Note for:: 10/18/18 Subjective:: Patient feels well good appetite, reports 1bout of diarrhea during the past 24 hours Reason For Visit: ACUTE APPENDICITIS Physical Exam Vital Signs: Temp Pulse Resp BP Pulse Ox 97.5 F 53 L 18 130/74 H 97 10/18/18 11:45 10/18/18 11:45 10/18/18 11:45 10/18/18 11:45 10/18/18 11:45 Intake & Output 10/17/18 10/18/18 10/19/18 06:59 06:59 06:59 Intake Total 1400 400 Balance 1400 400 Weight 99.4 kg 99.4 kg General appearance: PRESENT: no acute distress Respiratory exam: PRESENT: clear to auscultation regina Cardiovascular exam: PRESENT: RRR GI/Abdominal exam: PRESENT: normal bowel sounds, soft, other - RLQ wound: partially closed with Nylon sutures, presence of cloudy drainage from wound, no odor, erythema around wound and over lateral upper thigh Results Laboratory Results: 10/17/18 06:15 10/17/18 06:15 Impressions: Acute Abdomen Series 10/14/18 11:24 IMPRESSION: NO RADIOGRAPHIC EVIDENCE FOR ACUTE ABDOMINAL DISEASE. Abdomen/Pelvis CT 10/14/18 12:11 IMPRESSION: Mild fat stranding in the region of the appendix, consider further evaluation with enteric contrast to assess for appendiceal filling and/or surgical consultation if there is high clinical suspicion for appendicitis. 12 mm lateral segment right lower lobe pleural-based nodularity -scarring with calcifications, chronic appearing and likely related to remote infection. Assessment & Plan - Diagnosis (1) Acute appendicitis Qualifiers: Acute appendicitis type: unspecified acute appendicitis type Qualified Code(s): K35.80 - Unspecified acute appendicitis Is this a current diagnosis for this admission?: Yes (2) Leukocytosis Qualifiers: Leukocytosis type: unspecified Qualified Code(s): D72.829 - Elevated white blood cell count, unspecified Is this a current diagnosis for this admission?: Yes - Plan Summary Plan Summary: A/ POD #4 after laparoscopic appendectomy, converted to open POD #3 after take back for control of wound bleeding; however, no erin cause of bleeding identified REANNA drain removed postoperatively on POD #1 VSS, AF Wound partially closed at bedside yesterday; however, drainage noted from wound today and wound opened at bedside: souppy, dusky colored fatty tissue noted, fascia intact P/ Pack wound with Betadine soaked dressings Check wound cultures Continue IV Abx (Zosyn) Check lab work Possible WoundVac in 1-2 days once wound appears hand glove cleaner
[2018-10-18] MEDS ORDERED: ACETAMINOPHEN 325 MG TABLET PO PRN (14:38)
[2018-10-18] MEDS: SIMETHICONE 80 MG TAB.CHEW PO PRN (22:33)
[2018-10-19] MEDS: PIPERACILLIN SODIUM/TAZOBACTAM 3.375 GM in NORMAL SALINE 100 ML IV SCH ×4 (03:19→20:36)
[2018-10-19] MEDS: KETOROLAC TROMETHAMINE INJ/PF 30 MG/1 ML SDV IV SCH ×3 (03:19→15:48)
[2018-10-19] MEDS: SIMETHICONE 80 MG TAB.CHEW PO PRN ×3 (05:07→17:25)
[2018-10-19 06:52] LABS: ABSOLUTE BASOPHILS # (AUTO) 0.1 10^3/uL (0.0-0.2); ABSOLUTE EOSINOPHILS # (AUTO) 0.6 10^3/uL (0.0-0.6); ABSOLUTE LYMPHOCYTES (AUTO) 1.3 10^3/uL (0.5-4.7); ABSOLUTE MONOCYTES (AUTO) 0.8 10^3/uL (0.1-1.4); ABSOLUTE NEUT (AUTO) 6.7 10^3/uL (1.7-8.2); BASOPHILS % (AUTO) 0.8 % (0-2); EOSINOPHILS % (AUTO) 6.4 % (0-6); HEMOGLOBIN 14.5 g/dL (13.5-17.0); MEAN CORPUSCULAR HGB CONC 35.3 g/dL (32.0-36.0); MEAN CORPUSCULAR VOLUME 91 fl (80-97); MONOCYTES % (AUTO) 8.2 % (3-13); PLATELET COUNT 213 10^3/uL (150-450); RED BLOOD COUNT 4.52 10^6/uL (4.35-5.55); RED CELL DISTRIBUTION WIDTH 13.1 % (11.5-14.0); SEGMENTED NEUTROPHILS % (AUTO) 70.6 % (42-78); TOTAL CELLS COUNTED % (AUTO) 100 %; WHITE BLOOD COUNT 9.5 10^3/uL (4.0-10.5)
[2018-10-19 07:10] LABS: ANION GAP 8 (5-19); BLOOD UREA NITROGEN 9 mg/dL (7-20); CALCIUM 9.2 mg/dL (8.4-10.2); CARBON DIOXIDE 28 mmol/L (22-30); CHLORIDE 105 mmol/L (98-107); GLUCOSE 86 mg/dL (75-110); POTASSIUM 3.9 mmol/L (3.6-5.0)
--- NOTE | 2018-10-19 10:43 | PDOC PROGRESS REPORT ---
Subjective Progress Note for:: 10/19/18 Subjective:: Patient feels well, eating, voiding; pain controlled. Reason For Visit: ACUTE APPENDICITIS Physical Exam Vital Signs: Temp Pulse Resp BP Pulse Ox 97.9 F 48 L 20 133/83 H 96 10/19/18 07:54 10/19/18 07:54 10/19/18 07:54 10/19/18 07:54 10/19/18 07:54 Intake & Output 10/18/18 10/19/18 10/20/18 06:59 06:59 06:59 Intake Total 400 1250 Balance 400 1250 Weight 99.4 kg 99.4 kg General appearance: PRESENT: no acute distress, other - Looks well, smiling GI/Abdominal exam: PRESENT: other - Right lower quadrant dressing removed. Packing removed. Wound Betadine stain no foul smell no bleeding; no erin cellulitis Results Laboratory Results: 10/19/18 06:30 10/19/18 06:30 10/19/18 10/19/18 06:30 06:30 WBC 9.5 RBC 4.52 Hgb 14.5 Hct 41.0 MCV 91 MCH 32.0 MCHC 35.3 RDW 13.1 Plt Count 213 Seg Neutrophils % 70.6 Lymphocytes % 14.0 Monocytes % 8.2 Eosinophils % 6.4 H Basophils % 0.8 Absolute Neutrophils 6.7 Absolute Lymphocytes 1.3 Absolute Monocytes 0.8 Absolute Eosinophils 0.6 Absolute Basophils 0.1 Sodium 141.0 Potassium 3.9 Chloride 105 Carbon Dioxide 28 Anion Gap 8 BUN 9 Creatinine 0.94 Est GFR ( Amer) > 60 Est GFR (Non-Af Amer) > 60 Glucose 86 Calcium 9.2 Impressions: Acute Abdomen Series 10/14/18 11:24 IMPRESSION: NO RADIOGRAPHIC EVIDENCE FOR ACUTE ABDOMINAL DISEASE. Abdomen/Pelvis CT 10/14/18 12:11 IMPRESSION: Mild fat stranding in the region of the appendix, consider further evaluation with enteric contrast to assess for appendiceal filling and/or surgical consultation if there is high clinical suspicion for appendicitis. 12 mm lateral segment right lower lobe pleural-based nodularity -scarring with calcifications, chronic appearing and likely related to remote infection. Assessment & Plan - Diagnosis (1) Acute appendicitis Qualifiers: Acute appendicitis type: unspecified acute appendicitis type Qualified Code(s): K35.80 - Unspecified acute appendicitis Is this a current diagnosis for this admission?: Yes Plan: Impression: Patient now postoperative day 5 status post lap converted to open appendectomy; postoperative day for wound exploration control bleeding, doing well, now with open wound, with sepsis coming under control; tolerating a diet, voiding. Recommendations: 1. We will place wound VAC, black sponge, under 25 mmHg vacuum; will get discharge planning involved to assist with outpatient wound VAC. 2. Continue intravenous antibiotics 3. Hopefully can get patient home in the next 24-48 hours.
[2018-10-19] MEDS ORDERED: DOCUSATE SODIUM 100 MG CAPSULE PO SCH (11:30)
[2018-10-19] MEDS: DOCUSATE SODIUM 100 MG CAPSULE PO SCH ×2 (12:54→17:20)
[2018-10-19] MEDS: TRAMADOL HCL 50 MG TABLET PO PRN ×2 (13:58→20:35)
[2018-10-20] MEDS: PIPERACILLIN SODIUM/TAZOBACTAM 3.375 GM in NORMAL SALINE 100 ML IV SCH ×3 (03:44→15:37)
[2018-10-20] MEDS: TRAMADOL HCL 50 MG TABLET PO PRN ×3 (03:45→15:37)
[2018-10-20] MEDS: DOCUSATE SODIUM 100 MG CAPSULE PO SCH (09:41)
[2018-10-20] MEDS ORDERED: DOCUSATE SODIUM 100 MG CAPSULE PO SCH ×2 (10:00)
--- NOTE | 2018-10-20 12:16 | PDOC PROGRESS REPORT ---
Subjective Progress Note for:: 10/20/18 Subjective:: no c/o Reason For Visit: ACUTE APPENDICITIS Physical Exam Vital Signs: Temp Pulse Resp BP Pulse Ox 97.5 F 74 16 126/89 H 97 10/20/18 08:41 10/20/18 08:41 10/20/18 08:41 10/20/18 08:41 10/20/18 08:41 Intake & Output 10/19/18 10/20/18 10/21/18 06:59 06:59 06:59 Intake Total 1250 400 Output Total 20 Balance 1250 400 -20 Weight 99.4 kg 102.2 kg General appearance: PRESENT: no acute distress GI/Abdominal exam: PRESENT: soft, other - RLQ wound covered with WoundVac, no erythema or edema Results Laboratory Results: 10/19/18 06:30 10/19/18 06:30 10/18/18 14:06 Abdomen - Post Surgical Site Gram Stain - Final 10/18/18 14:06 Abdomen - Post Surgical Site Wound Culture - Final Escherichia Coli Esbl No Anaerobic Organisms Impressions: Acute Abdomen Series 10/14/18 11:24 IMPRESSION: NO RADIOGRAPHIC EVIDENCE FOR ACUTE ABDOMINAL DISEASE. Abdomen/Pelvis CT 10/14/18 12:11 IMPRESSION: Mild fat stranding in the region of the appendix, consider further evaluation with enteric contrast to assess for appendiceal filling and/or surgical consultation if there is high clinical suspicion for appendicitis. 12 mm lateral segment right lower lobe pleural-based nodularity -scarring with calcifications, chronic appearing and likely related to remote infection. Assessment & Plan - Diagnosis (1) Acute appendicitis Qualifiers: Acute appendicitis type: unspecified acute appendicitis type Qualified Code(s): K35.80 - Unspecified acute appendicitis Is this a current diagnosis for this admission?: Yes (2) Leukocytosis Qualifiers: Leukocytosis type: unspecified Qualified Code(s): D72.829 - Elevated white blood cell count, unspecified Is this a current diagnosis for this admission?: Yes - Plan Summary Plan Summary: A/ POD#5 after open appendectomy Patient doing well, tolerating po well Bowel function normal Cx from wound are positive for ESBL E. Coli WoundVac on LQ abdominal wound; no evidence of cellulitis P/ Home today regular diet activities as tolerated; no lifting > 10# x 8 weeks, then increase weight lifiting accordingly and slowly during next 8 months Augmentin 875 mg po BID x 10 days Tylenol and Aleve as needed for pain over the counter Woundvac routine care, replace once a week, negative 125 mm/Hg pressure WoundVac care as per Home Health nurse sponge bath while has WoundVac: can shower the day of WoundVac replacement (water and soap can run over open wound) F[facility]u with [facility] 2 weeks with MAGALIS Gustafson Return to work light duties on or after 10/29/18
[2018-10-20 17:20] VITALS: BP 130/79
--- NOTE | 2018-10-21 15:22 | DISCHARGE SUMMARY E ---
Discharge Summary NAME: BRYAN ROBBINS : 1985 AGE: 33Y ADMITTED: 10/14/2018 DISCHARGED: 10/20/2018 FINAL DIAGNOSIS: Acute ruptured appendicitis. PROCEDURE: On October 14, the patient underwent attempted laparoscopic appendectomy converted to open, and on October 15, the patient underwent a washout of right lower quadrant abdominal wound. COMPLICATIONS: None. HOSPITAL COURSE: A 33-year-old male who was admitted on October 14 with right lower quadrant pain, nausea and vomiting, found to have acute appendicitis. On the same day, the patient underwent an attempted laparoscopic appendectomy converted to open through a right lower quadrant incision. On postoperative day #1, the patient presented with diffuse oozing of the wound and was taken to surgery for washout of the wound. An obvious area of bleeding was not identified, however. Postoperatively, the patient did very well. His vital signs remained stable. White blood cell count remained normal. His diet was advanced to regular. His bowel function returned. His abdominal wound was initially closed with previously intraoperatively placed sutures; however, the wound became infected, with drainage 2 days afterward. The sutures were removed. The wound was completely opened and packed with Betadine dressings initially. Subsequently, a wound V.A.C. was placed. The patient was then discharged home on October 20. He was given a followup appointment in the office with MAGALIS Herman in 2 weeks. He was given instructions for sponge bath until the wound V.A.C. is replaced. The patient was provided with a wound V.A.C. to be replaced once a week by the home care nurse. He was given Augmentin 875 mg p.o. b.i.d. for 10 days, Tylenol and Aleve as needed for pain. Activities as tolerated. No lifting more than 10 pounds in 8 weeks. Following that, he can increase the weight lifting slowly up to a month. Sponge bath only until the wound V.A.C. is replaced. The patient can shower on the day of the wound V.A.C. replacement. A regular diet. The patient could return to light duty work on or after October 29, 2018. DICTATING PHYSICIAN: PARESH MCQUEEN M.D. [id number] PHY#: [id number] ID: [id number] JOB#: [id number] ACCT: [id number] cc:Ugo MAGANA M.D. > ORID
== END 2018-10-20 17:28 | disposition home or self-care (01) | DRG 339 ==
LOC: ER 10:50 → EH 13:52 → 2N 18:34
PROVIDERS: ADMIT Surgery; ATTEND Surgery
PROC: 0DJD4ZZ Inspection of Lower Intestinal Tract, Percutaneous Endoscopic Approach (ICD-10-PCS; 2018-10-14)
PROC: 0DTJ0ZZ Resection of Appendix, Open Approach (ICD-10-PCS; principal; 2018-10-14 15:30)
PROC: 0W3F0ZZ Control Bleeding in Abdominal Wall, Open Approach (ICD-10-PCS; 2018-10-15)
PROC: 3E1G78Z Irrigation of Upper GI using Irrigating Substance, Via Natural or Artificial Opening (ICD-10-PCS; 2018-10-15)
DX: K35.32 Acute appendicitis with perforation, localized peritonitis, and gangrene, without abscess (principal); L76.22 Postprocedural hemorrhage of skin and subcutaneous tissue following other procedure; Y83.6 Removal of other organ (partial) (total) as the cause of abnormal reaction of the patient, or of later complication, without mention of misadventure at the time of the procedure; Y92.230 Patient room in hospital as the place of occurrence of the external cause
CPT/HCPCS: 36415; 74022; 74177; 80048; 80053; 81001; 83690; 840; 85025; 86850; 86900; 86901; 86920; 87070; 87075; 87077; 87186; 87205; 88304; 96361; 96374; 96375; 99285; J0131; J0330; J1100; J1170; J1885; J2250; J2405; J2543; J2704; J3010; J3490; J7030; J7120

== ENCOUNTER 2018-11-04 02:28 | Emergency (ER) | payer BC ==
[2018-11-04] MEDS ORDERED: HYDROMORPHONE HCL INJ/PF 2 MG/ML AMPULE IM PRN (02:50)
--- NOTE | 2018-11-04 03:56 | ER Document Report ---
ED General - General Chief Complaint: Wound Recheck Stated Complaint: WOUND VAC NEEDS TO BE CHANGED Time Seen by Provider: 11/04/18 02:38 Primary Care Provider: MARISELA,DEL [Primary Care Provider] - Follow up as needed Notes: Patient is a 33-year-old male status post appendectomy with wound VAC in place to the right lower quadrant who presents due to malfunction of the wound VAC. Patient states that the wound VAC is not making the correct sounds, does not appear to be stuck into his abdomen correctly. He is here for change of the wound VAC. He is requesting some form of pain medication during change out. He denies any fever, increased pain to the area or any other concerns. Follows in the wound clinic with Dr. Palmer. Has not contacted the wound clinic regarding tonight's concerns. TRAVEL OUTSIDE OF THE [place] IN LAST 30 DAYS: No - Related Data Allergies/Adverse Reactions: No Known Allergies Allergy (Verified 11/04/18 02:30) Past Medical History - General Information source: Patient - Social History Smoking Status: Never Smoker Frequency of alcohol use: None Drug Abuse: None Lives with: Spouse/Significant other Family History: Reviewed & Not Pertinent Patient has suicidal ideation: No Patient has homicidal ideation: No Renal/ Medical History: Denies: Hx Peritoneal Dialysis Psychiatric Medical History: Reports: Hx Depression Past Surgical History: Reports: Hx Abdominal Surgery - colostomy at , no longer there, Hx Appendectomy, Other - colostomy as a - Immunizations Hx Diphtheria, Pertussis, Tetanus Vaccination: Yes Review of Systems - Review of Systems Notes: Constitutional: Negative for fever. HENT: Negative for sore throat. Eyes: Negative for visual changes. Cardiovascular: Negative for chest pain. Respiratory: Negative for shortness of breath. Gastrointestinal: Negative for abdominal pain, vomiting or diarrhea. Genitourinary: Negative for dysuria. Musculoskeletal: Negative for back pain. Skin: Positive for wound VAC to the right lower quadrant Neurological: Negative for headaches, weakness or numbness. 10 point ROS negative except as marked above and in HPI. Physical Exam - Vital signs Vitals: Temp Pulse Resp BP Pulse Ox 98.0 F 80 20 136/69 H 96 11/04/18 02:30 11/04/18 02:30 11/04/18 02:30 11/04/18 02:30 11/04/18 02:30 Interpretation: Normal Notes: PHYSICAL EXAMINATION: GENERAL: Well-appearing, well-nourished and in no acute distress. HEAD: Atraumatic, normocephalic. EYES: Pupils equal round and reactive to light, extraocular movements intact, sclera anicteric, conjunctiva are normal. ENT: nares patent, oropharynx clear without exudates. Moist mucous membranes. NECK: Normal range of motion, supple without lymphadenopathy LUNGS: Normal work of breathing HEART: Regular rate and rhythm without murmurs ABDOMEN: Soft, nontender, normoactive bowel sounds. No guarding, no rebound. No masses appreciated. EXTREMITIES: Normal range of motion, no pitting or edema. No cyanosis. NEUROLOGICAL: No focal neurological deficits. Moves all extremities spontaneously and on command. PSYCH: Normal mood, normal affect. SKIN: Warm, Dry, normal turgor, wound VAC in place the right lower quadrant, portion towards the flank appears to be unsealed Course - Re-evaluation Re-evalutation: 11/04/18 03:55 Patient presents for wound VAC change at which was completed without complication. He will be discharged with follow-up in wound clinic as planned. - Vital Signs Vital signs: Temp Pulse Resp BP Pulse Ox 98.0 F 80 20 136/69 H 96 11/04/18 02:30 11/04/18 02:30 11/04/18 02:30 11/04/18 02:30 11/04/18 02:30 Discharge - Discharge Clinical Impression: Encounter for management of wound VAC Condition: Good Disposition: HOME, SELF-CARE Additional Instructions: Return for any additional concerns you may have including increasing pain to the wound site, spreading redness from the area, or failure of your wound VAC. Please also return for any additional concerns you may have. Referrals: MARISELA,NO [Primary Care Provider] - Follow up as needed MARQUIS PALMER MD [ACTIVE STAFF] - Follow up in 3-5 days
[2018-11-04 04:07] VITALS: BP 117/72
== END 2018-11-04 04:30 | disposition home or self-care (01) ==
LOC: ER 02:28
DX: Z48.815 Encounter for surgical aftercare following surgery on the digestive system (principal)
CPT/HCPCS: 99282; 96372; J1170